=== PATIENT | female | born 1950 | race Caucasian/White ===

== ENCOUNTER 2017-02-06 18:28 | Inpatient (IN) | payer OTHER ==
[~2017-02-06] VITALS: Ht 167.6 cm; Wt 76.2 kg
[2017-02-06 19:46] LABS: MCH 31.3 PG (29.0-34.0); MCHC 31.8 G/DL (30.0-36.0); MCV 98.2 FL (83-99); PLATELET COUNT 238 K/uL (156-360); RBC DIS.WIDTH-CV 13.4 % (11.8-14.6); RBC DIS.WIDTH-SD 48.5 % (39-53); RED BLOOD COUNT 3.87 M/uL (3.80-5.20); WHITE BLOOD COUNT 12.1 K/uL (4.1-10.2)
[2017-02-06] MEDS ORDERED: PAXIL20 MG PO (19:49)
[2017-02-06] MEDS ORDERED: TALTZ AUTO80 MG/1 M1 SC (19:49)
[2017-02-06] MEDS ORDERED: PANTOPRAZOLE SO40 MG PO (19:49)
[2017-02-06] MEDS ORDERED: TRAZODONE HCL50 MG PO (19:49)
[2017-02-06] MEDS ORDERED: HYDROCODON-ACE1 EAC7 PO (19:50)
[2017-02-06] MEDS ORDERED: TYLENOL REGULA325 MG PO (19:50)
[2017-02-06] MEDS ORDERED: CALCIUM 500 +1 EACH PO (19:50)
[2017-02-06 19:56] LABS: PROTHROMBIN TIME 10.3 (9.2-11.2); PTT 25.6 (25-32)
[2017-02-06 19:59] LABS: CHLORIDE 106 mEq/L (99-109); POTASSIUM 4.1 mEq/L (3.7-5.4); SODIUM 140 mEq/L (136-147)
[2017-02-06 20:01] LABS: GLUCOSE 105 mg/dL (70-99)
[2017-02-06 20:02] LABS: ANION GAP 8 MEQ/L (2-14)
[2017-02-06 20:05] LABS: GFR ESTIMATE (CALCULATED) > 59 mL/min/
[2017-02-06 20:06] LABS: UREA NITROGEN (BUN) 14 mg/dL (9-23)
[2017-02-06 22:39] LABS: ADD MEDTOX COMMENT Y; AMPHETAMINE NEGATIVE (500 ng/mL); BARBITURATES NEGATIVE (200 ng/mL); BENZODIAZEPINES PRESUMPTIVE POSITIVE (150 ng/mL); COCAINE NEGATIVE (150 ng/mL); INTERNAL CONTROLS VALID? YES; METHADONE NEGATIVE (200 ng/mL); METHAMPHETAMINE NEGATIVE (500 ng/mL); OPIATES (MORPHINE) PRESUMPTIVE POSITIVE (100 ng/mL); OXYCODONE NEGATIVE (100 ng/mL); PHENCYCLIDINE NEGATIVE (25 ng/mL); PROPOXYPHENE NEGATIVE (300 ng/mL); THC CANNABINOIDS NEGATIVE (50 ng/mL); TRICYCLIC ANTIDEPRESSANTS NEGATIVE (300 ng/mL)
[2017-02-06 23:16] LABS: BENZODIAZEPINES QUANT VALUE 0 NG/ML; BENZODIAZEPINES, URINE SCREEN Negative (200 ng/mL)
[2017-02-06 23:57] VITALS: BP 130/60
[2017-02-07 04:51] VITALS: BP 123/56
[2017-02-07 08:01] VITALS: BP 107/53
[2017-02-07 11:57] VITALS: BP 119/55
[2017-02-07 16:33] VITALS: BP 122/58
[2017-02-07 19:41] VITALS: BP 114/54
[2017-02-08] VITALS (7 sets, daily range): BP systolic 110–137; BP diastolic 51–74
[2017-02-08 06:54] LABS: BASOPHIL COUNT 0.1 K/uL (0-0.1); EOSINOPHIL (%) 3.5 % (0-5); EOSINOPHIL COUNT 0.4 K/uL (0-0.3); HEMATOCRIT 31.5 % (36.0-46.0); IMMATURE GRANULOCYTE (%) 0.4 % (0.0-0.7); INSTRUMENT ABS NEUTROPHIL CT 7.9 K/uL; LYMPHOCYTE COUNT 1.6 K/uL (1.0-2.8); MCH 32.8 PG (29.0-34.0); MCV 99.4 FL (83-99); MONOCYTE (%) 9.1 % (3-12); NEUTROPHIL (%) 71.7 % (45-76); NEUTROPHIL COUNT 7.9 K/uL (1.8-6.4); PLATELET COUNT 195 K/uL (156-360); RBC DIS.WIDTH-CV 13.2 % (11.8-14.6); RBC DIS.WIDTH-SD 47.9 % (39-53); RED BLOOD COUNT 3.17 M/uL (3.80-5.20)
[2017-02-08 07:15] LABS: ALKALINE PHOSPHATASE 58 IU/L (3-129); ANION GAP 4 MEQ/L (2-14); CHLORIDE 103 MEQ/L (99-109); GFR ESTIMATE (CALCULATED) > 59 mL/min/; GLUCOSE 324 mg/dL (70-99); MAGNESIUM 1.6 mg/dl (1.3-2.7); POTASSIUM 5.4 MEQ/L (3.7-5.4); SAMPLE HEMOLYSIS CHECK 0; SAMPLE ICTERIC CHECK 0; SAMPLE LIPEMIA CHECK 0; SODIUM 137 MEQ/L (136-147); TOTAL BILIRUBIN 0.4 MG/DL (0.0-1.0); UREA NITROGEN (BUN) 8 mg/dL (9-23)
[2017-02-09 03:58] VITALS: BP 117/55
[2017-02-09 07:50] VITALS: BP 134/76
[2017-02-09 09:34] LABS: BASOPHIL COUNT 0.1 K/uL (0-0.1); EOSINOPHIL (%) 3.8 % (0-5); EOSINOPHIL COUNT 0.4 K/uL (0-0.3); HEMATOCRIT 36.1 % (36.0-46.0); IMMATURE GRANULOCYTE (%) 0.3 % (0.0-0.7); INSTRUMENT ABS NEUTROPHIL CT 8.1 K/uL; LYMPHOCYTE COUNT 2.1 K/uL (1.0-2.8); MCH 31.4 PG (29.0-34.0); MCHC 31.9 G/DL (30.0-36.0); MCV 98.6 FL (83-99); MEAN PLAT.VOLUME 10.3 uM^3 (9.5-12.4); MONOCYTE (%) 7.4 % (3-12); MONOCYTE COUNT 0.9 K/uL (0-0.8); NEUTROPHIL (%) 69.7 % (45-76); NEUTROPHIL COUNT 8.1 K/uL (1.8-6.4); PLATELET COUNT 232 K/uL (156-360); RBC DIS.WIDTH-CV 12.8 % (11.8-14.6); RBC DIS.WIDTH-SD 46.4 % (39-53); RED BLOOD COUNT 3.66 M/uL (3.80-5.20); WHITE BLOOD COUNT 11.6 K/uL (4.1-10.2)
[2017-02-09 10:00] LABS: ANION GAP 7 MEQ/L (2-14); CHLORIDE 101 MEQ/L (99-109); GFR ESTIMATE (CALCULATED) > 59 mL/min/; MAGNESIUM 1.7 mg/dl (1.3-2.7); POTASSIUM 4.6 MEQ/L (3.7-5.4); SAMPLE HEMOLYSIS CHECK 0; SAMPLE ICTERIC CHECK 0; SAMPLE LIPEMIA CHECK 0; SODIUM 142 MEQ/L (136-147); UREA NITROGEN (BUN) 9 mg/dL (9-23)
[2017-02-09 10:01] LABS: GLUCOSE 92 mg/dL (70-99)
[2017-02-09 11:57] LABS: POINT-OF-CARE METER ID UU14149397
[2017-02-09 16:41] VITALS: BP 124/57
[2017-02-09 17:20] LABS: POINT-OF-CARE METER ID UU14149397
[2017-02-09 19:42] VITALS: BP 106/58
[2017-02-09 22:09] LABS: POINT-OF-CARE METER ID UU14149397
[2017-02-09 23:37] VITALS: BP 126/61
[2017-02-10 03:54] VITALS: BP 108/56
[2017-02-10 06:44] LABS: POINT-OF-CARE METER ID UU14188577
[2017-02-10 07:46] VITALS: BP 130/63
[2017-02-10 11:30] VITALS: BP 112/56
[2017-02-10 11:41] LABS: POINT-OF-CARE METER ID UU14188577
[2017-02-10 15:54] VITALS: BP 133/61
[2017-02-10 16:34] LABS: POINT-OF-CARE METER ID UU14188577
[2017-02-10 19:36] VITALS: BP 135/63
[2017-02-10 21:16] LABS: POINT-OF-CARE METER ID UU14149397
[2017-02-10 23:25] VITALS: BP 122/60
[2017-02-11 04:48] VITALS: BP 125/58
[2017-02-11 06:25] LABS: POINT-OF-CARE METER ID UU14188577
[2017-02-11 06:50] LABS: BASOPHIL COUNT 0.1 K/uL (0-0.1); EOSINOPHIL (%) 5.4 % (0-5); EOSINOPHIL COUNT 0.5 K/uL (0-0.3); HEMATOCRIT 34.9 % (36.0-46.0); IMMATURE GRANULOCYTE (%) 0.3 % (0.0-0.7); INSTRUMENT ABS NEUTROPHIL CT 5.1 K/uL; LYMPHOCYTE COUNT 2.2 K/uL (1.0-2.8); MCH 32.5 PG (29.0-34.0); MCHC 33.2 G/DL (30.0-36.0); MCV 97.8 FL (83-99); MEAN PLAT.VOLUME 10.3 uM^3 (9.5-12.4); MONOCYTE (%) 10.1 % (3-12); MONOCYTE COUNT 0.9 K/uL (0-0.8); NEUTROPHIL (%) 58.3 % (45-76); NEUTROPHIL COUNT 5.1 K/uL (1.8-6.4); PLATELET COUNT 248 K/uL (156-360); RBC DIS.WIDTH-CV 12.9 % (11.8-14.6); RBC DIS.WIDTH-SD 45.6 % (39-53); RED BLOOD COUNT 3.57 M/uL (3.80-5.20); WHITE BLOOD COUNT 8.7 K/uL (4.1-10.2)
[2017-02-11 07:14] VITALS: BP 121/56
[2017-02-11 07:20] LABS: ANION GAP 7 MEQ/L (2-14); CHLORIDE 99 MEQ/L (99-109); GFR ESTIMATE (CALCULATED) > 59 mL/min/; GLUCOSE 85 mg/dL (70-99); MAGNESIUM 1.7 mg/dl (1.3-2.7); POTASSIUM 5.1 MEQ/L (3.7-5.4); SAMPLE HEMOLYSIS CHECK 0; SAMPLE ICTERIC CHECK 0; SAMPLE LIPEMIA CHECK 0; SODIUM 143 MEQ/L (136-147); UREA NITROGEN (BUN) 17 mg/dL (9-23)
[2017-02-11 10:57] VITALS: BP 138/67
[2017-02-11 11:43] LABS: POINT-OF-CARE METER ID UU14149397
[2017-02-11 15:48] VITALS: BP 129/62
[2017-02-11 19:28] VITALS: BP 116/6
[2017-02-11 21:42] LABS: POINT-OF-CARE METER ID UU14149397
[2017-02-11 23:42] VITALS: BP 116/55
[2017-02-12 04:46] VITALS: BP 114/55
[2017-02-12 07:10] VITALS: BP 118/56
[2017-02-12 11:07] LABS: POINT-OF-CARE METER ID UU14149397
[2017-02-12 11:36] VITALS: BP 111/54
[2017-02-12] MEDS ORDERED: OXYCODONE-APAP1 EACH PO (14:44)
== END 2017-02-12 16:05 | disposition home or self-care (01) | DRG 950 ==
LOC: EME 18:28 → 3EAST 21:20 → EDOF 21:20 → 3EAST 22:56
PROVIDERS: Emergency Medicine; Surgery
DX: S27.0XXD Traumatic pneumothorax, subsequent encounter (principal); I10 Essential (primary) hypertension; E78.5 Hyperlipidemia, unspecified; W10.9XXD Fall (on) (from) unspecified stairs and steps, subsequent encounter; K21.9 Gastro-esophageal reflux disease without esophagitis; F41.9 Anxiety disorder, unspecified; F32.9 Major depressive disorder, single episode, unspecified; F17.200 Nicotine dependence, unspecified, uncomplicated; S80.2 Other superficial injuries of knee; S80.01XD Contusion of right knee, subsequent encounter; S22.41XD Multiple fractures of ribs, right side, subsequent encounter for fracture with routine healing; S62.616A Displaced fracture of proximal phalanx of right little finger, initial encounter for closed fracture
CPT/HCPCS: 71010; 71020; 80048; 80053; 82948; 83735; 84100; 84999; 85025; 85027; 85610; 85730; 94799; 97530 GP; 99281; 99285; J1170; J1650; J1815; J2270; J2405; J3475; J7050